=== PATIENT | female | born 1995 | race Caucasian/White ===

== ENCOUNTER 2017-07-09 15:28 | Day surgery (SDC) | payer OTHER ==
[~2017-07-09] VITALS: Ht 167.6 cm; Wt 82.8 kg
[~2017-07-09 15:28] MED LIST: BENZEPRO100 GM TP; EPIDUO GEL PUMP45 GM TP; LEVAQUIN750 MG PO; PERCOCET 5/31 TABLET PO; TAMIFLU75 MG PO; TRI-PREVIFEM1 EACH PO; ZOFRAN4 MG PO; antibiotic PO
[2017-07-09 16:27] LABS: HEMOGLOBIN 12.3 G/DL (11.9-15.5); MCH 28.4 PG (29.0-34.0); MCHC 33.2 G/DL (30.0-36.0); MCV 85.5 FL (83-99); PLATELET COUNT 273 K/uL (156-360); RBC DIS.WIDTH-CV 12.5 % (11.8-14.6); RBC DIS.WIDTH-SD 38.8 % (39-53); RED BLOOD COUNT 4.33 M/uL (3.80-5.20); WHITE BLOOD COUNT 8.1 K/uL (4.1-10.2)
[2017-07-09 16:43] LABS: INTER. NORMALIZED RATIO 1.1
[2017-07-09 16:46] LABS: CHLORIDE 105 mEq/L (99-109); POTASSIUM 3.9 mEq/L (3.7-5.4); PTT 28.9 SEC (25-37); SODIUM 135 mEq/L (136-147)
[2017-07-09 16:48] LABS: GLUCOSE 87 mg/dL (70-99); TOTAL PROTEIN 8.9 g/dL (6.4-8.3)
[2017-07-09 16:50] LABS: TOTAL BILIRUBIN 0.3 mg/dL (0.0-1.0)
[2017-07-09] MEDS ORDERED: FLUOXETINE HCL20 MG PO (16:50)
[2017-07-09] MEDS ORDERED: DOXYCYCLINE MON50 MG PO (16:50)
[2017-07-09 16:52] LABS: ALKALINE PHOSPHATASE 85 IU/L (3-129); CREATININE 0.7 mg/dL (0.6-1.3); GFR ESTIMATE (CALCULATED) > 59 mL/min/
[2017-07-09] MEDS ORDERED: ASPIRIN500 MG PO (16:52)
[2017-07-09 16:53] LABS: UREA NITROGEN (BUN) 11 mg/dL (9-23)
[2017-07-09 16:54] LABS: AST (GOT) 38 IU/L (2-34)
[2017-07-09 16:55] LABS: ALT (GPT) 49 IU/L (3-49)
[2017-07-09 17:06] LABS: APPEARANCE CLEAR ((CLEAR)); BILIRUBIN NEGATIVE; BLOOD MODERATE; COLOR YELLOW ((YELLOW)); GLUCOSE (STRIP) NEGATIVE; KETONES 5; LEUKOCYTES NEGATIVE; NITRITE NEGATIVE; PROTEIN (STRIP) NEGATIVE; SPECIFIC GRAVITY 1.016 (1.000-1.030); UROBILINOGEN 0.2 MG/DL (0.2-1.0)
[2017-07-09 17:14] LABS: BACTERIA NONE SEEN /HPF; EPITHELIAL CELLS RARE /HPF; MUCUS TRACE /LPF; RED BLOOD CELLS 0-5 /HPF (0-5); UCUL ADDED? NO; WHITE BLOOD CELLS 0-5 /HPF (0-5)
[2017-07-09 17:36] LABS: QUANTITATIVE HCG 225.8 MIU/ML
[2017-07-09 22:24] VITALS: BP 123/58
[2017-07-09] MEDS ORDERED: MOTRIN800 MG PO (22:31)
[2017-07-09] MEDS ORDERED: PERCOCET 5/31 TABLET PO (22:31)
[2017-07-10 03:25] VITALS: BP 97/47
[2017-07-10 07:32] VITALS: BP 111/65
[2017-07-10 07:39] LABS: BASOPHIL (%) 0.4 % (0-1); EOSINOPHIL (%) 1.8 % (0-5); EOSINOPHIL COUNT 0.2 K/uL (0-0.3); HEMATOCRIT 33.6 % (36.0-46.0); HEMOGLOBIN 11.1 G/DL (11.9-15.5); IMMATURE GRANULOCYTE (%) 0.2 % (0.0-0.7); LYMPHOCYTE (%) 19.6 % (15-42); LYMPHOCYTE COUNT 1.6 K/uL (1.0-2.8); MCH 28.8 PG (29.0-34.0); MONOCYTE (%) 8.6 % (3-12); MONOCYTE COUNT 0.7 K/uL (0-0.8); NEUTROPHIL (%) 69.4 % (45-76); NEUTROPHIL COUNT 5.6 K/uL (1.8-6.4); PLATELET COUNT 232 K/uL (156-360); RBC DIS.WIDTH-CV 12.7 % (11.8-14.6); RBC DIS.WIDTH-SD 40.5 % (39-53); RED BLOOD COUNT 3.86 M/uL (3.80-5.20); WHITE BLOOD COUNT 8.1 K/uL (4.1-10.2)
[2017-07-10 08:01] LABS: ALBUMIN 3.1 G/DL (3.2-4.8); ALKALINE PHOSPHATASE 57 IU/L (3-129); ALT (GPT) 31 IU/L (3-49); AST (GOT) 38 IU/L (2-34); CHLORIDE 105 MEQ/L (99-109); CREATININE 0.4 MG/DL (0.6-1.3); GFR ESTIMATE (CALCULATED) > 59 mL/min/; GLUCOSE 101 mg/dL (70-99); POTASSIUM 4.2 MEQ/L (3.7-5.4); SODIUM 133 MEQ/L (136-147); TOTAL BILIRUBIN 0.4 MG/DL (0.0-1.0); TOTAL PROTEIN 6.7 G/DL (6.4-8.3); UREA NITROGEN (BUN) 6 mg/dL (9-23)
== END 2017-07-10 11:06 | disposition home or self-care (01) ==
LOC: EME 15:28 → SDC 19:49 → 2SOUTH 21:00 → ENRESERV 21:43 → 2EAST 22:10 → ENPENDDIS 07-10 → 2EAST 07-10 11:06
PROVIDERS: Emergency Medicine; Obstetrics & Gynecology
DX: O00.101 Right tubal pregnancy without intrauterine pregnancy (principal); F17.200 Nicotine dependence, unspecified, uncomplicated
CPT/HCPCS: 80053; 81003; 84144; 84702; 85025; 85027; 85610; 85730; 86850; 86900; 86901; 88305; 99281; 99285; G0378; J0131; J0330; J1100; J1170; J1885; J2250; J2405; J2550; J2710; J3010; J7120